=== PATIENT | female | born 1960 | race Hispanic/Latino ===

== ENCOUNTER 2019-03-23 23:34 | Emergency (ER) | payer OTHER ==
--- NOTE | 2019-03-23 23:59 | ER ---
Nurse's Notes [facility] Name: Lisa Rodríguez Age: 58 yrs Sex: Female : 1960 Arrival Date: 03/23/2019 Time: 23:37 Bed 26 Private MD: Diagnosis: Foreign body in right ear Presentation: 03/23 23:54 Presenting complaint: Patient states: Part of hearing aid stuck in right ear. tl2 Transition of care: patient was not received from another setting of care. Onset of symptoms was March 23, 2019. Risk Assessment: Do you want to hurt yourself or someone else? Patient reports no desire to harm self or others. Initial Sepsis Screen: Does the patient meet any 2 criteria? No. Patient's initial sepsis screen is negative. Does the patient have a suspected source of infection? No. Patient's initial sepsis screen is negative. Care prior to arrival: None. 23:54 Method Of Arrival: Ambulatory tl2 23:54 Acuity: LINSEY 4 tl2 Historical: - Allergies: 23:55 No Known Allergies; tl2 - Home Meds: 23:55 Enalapril Oral [Active]; Celebrex Oral [Active]; tl2 - PMHx: 23:55 Hypertension; left kidney people; tl2 - PSHx: 23:55 None; tl2 - Immunization history:: Adult Immunizations up to date. - Social history:: Smoking status: Patient/guardian denies using tobacco. - Ebola Screening: : No symptoms or risks identified at this time. Screenin:56 Abuse screen: Denies threats or abuse. Nutritional screening: No deficits noted. tl2 Tuberculosis screening: No symptoms or risk factors identified. Fall Risk None identified. Assessment: 23:50 General: Appears in no apparent distress. comfortable, Behavior is calm, cooperative, ca1 appropriate for age. Pain: Denies pain. Neuro: Level of Consciousness is awake, alert, obeys commands, Oriented to person, place, time, situation. Cardiovascular: Heart tones S1 S2 present Capillary refill < 3 seconds Patient's skin is warm and dry. Respiratory: Airway is patent Respiratory effort is even, unlabored, Respiratory pattern is regular, symmetrical, Breath sounds are clear bilaterally. GI: Abdomen is flat, non-distended, Bowel sounds present X 4 quads. Abd is soft and non tender X 4 quads. : No deficits noted. No signs and/or symptoms were reported regarding the genitourinary system. EENT: Ear canal w/ foreign body noted from right ear. 23:50 Derm: Skin is intact, is healthy with good turgor, Skin is pink, warm \T\ dry. ca1 Musculoskeletal: Circulation, motion, and sensation intact. Capillary refill < 3 seconds, Range of motion: intact in all extremities. Vital Signs: 23:55 BP 172 / 88; Pulse 62; Resp 18; Temp 98.9(O); Pulse Ox 98% on R/A; Weight 83.01 kg; tl2 Height 5 ft. 5 in. (165.10 cm); Pain 09/17; 03/24 00:08 BP 152 / 76; Pulse 58; Resp 16 S; Pulse Ox 100% on R/A; ca1 03/23 23:55 Body Mass Index 30.45 (83.01 kg, 165.10 cm) tl2 ED Course: 03/23 23:37 Patient arrived in ED. am2 23:45 Mateo Gamez, YOBANI is Primary Nurse. mg2 23:48 Ken Norman NP is PHCP. pm1 23:48 Vernon Gil MD is Attending Physician. pm1 23:50 No provider procedures requiring assistance completed. Patient did not have IV access ca1 during this emergency room visit. 23:54 Triage completed. tl2 23:55 Arm band placed on right wrist. tl2 23:56 Patient has correct armband on for positive identification. Bed in low position. Call tl2 light in reach. Side rails up X 1. Adult w/ patient. Administered Medications: No medications were administered Outcome: 23:58 Discharge ordered by . pm1 03/24 00:11 Discharged to home ambulatory, with significant other. ca1 00:11 Condition: stable ca1 00:11 Discharge instructions given to patient, Instructed on discharge instructions, follow up and referral plans. Demonstrated understanding of instructions, follow-up care. 00:11 Patient left the ED. ca1 Signatures: Ken Norman NP DEMAND GENERATION MANAGER pm1 Lenka White RN RN tl2 Cara Bellamy am2 Mateo Gamez RN RN mg2 Taina Saldaña RN RN ca1
--- NOTE | 2019-03-23 23:59 | EDPHYS ---
Physician Documentation [facility] Name: Lisa Rodríguez Age: 58 yrs Sex: Female : 1960 Arrival Date: 03/23/2019 Time: 23:37 Bed 26 Private MD: ED Physician Vernon Gil HPI: 03/23 23:54 This 58 yrs old Female presents to ER via Unassigned with complaints of pm1 Foreign Body In Ear. 23:54 The patient presents with a foreign body sensation, piece of her hearing aid. The pm1 complaints affect the right ear. Onset: The symptoms/episode began/occurred today. Modifying factors: The symptoms are alleviated by nothing, the symptoms are aggravated by nothing. Associated signs and symptoms: The patient has no apparent associated signs or symptoms. Severity of symptoms: Pain is currently a 0 / 10. Part of patient's hearing aid is left inside the right ear canal. Historical: - Allergies: 23:55 No Known Allergies; tl2 - Home Meds: 23:55 Enalapril Oral [Active]; Celebrex Oral [Active]; tl2 - PMHx: 23:55 Hypertension; left kidney people; tl2 - PSHx: 23:55 None; tl2 - Immunization history:: Adult Immunizations up to date. - Social history:: Smoking status: Patient/guardian denies using tobacco. - Ebola Screening: : No symptoms or risks identified at this time. ROS: 23:54 Constitutional: Negative for fever, chills, and weight loss. pm1 23:54 Neck: Negative for injury, pain, and swelling, Cardiovascular: Negative for chest pain, palpitations, and edema, Respiratory: Negative for shortness of breath, cough, wheezing, and pleuritic chest pain, Abdomen/GI: Negative for abdominal pain, nausea, vomiting, diarrhea, and constipation, Back: Negative for injury and pain, MS/Extremity: Negative for injury and deformity, Skin: Negative for injury, rash, and discoloration, Neuro: Negative for headache, weakness, numbness, tingling, and seizure. 23:54 ENT: Positive for foreign body sensation, Negative for ear pain. Exam: 23:54 Constitutional: This is a well developed, well nourished patient who is awake, alert, pm1 and in no acute distress. Head/Face: Normocephalic, atraumatic. Eyes: Pupils equal round and reactive to light, extra-ocular motions intact. Lids and lashes normal. Conjunctiva and sclera are non-icteric and not injected. Cornea within normal limits. Periorbital areas with no swelling, redness, or edema. 23:54 Neck: Trachea midline, no thyromegaly or masses palpated, and no cervical lymphadenopathy. Supple, full range of motion without nuchal rigidity, or vertebral point tenderness. No Meningismus. Chest/axilla: Normal chest wall appearance and motion. Nontender with no deformity. No lesions are appreciated. Cardiovascular: Regular rate and rhythm with a normal S1 and S2. No gallops, murmurs, or rubs. Normal PMI, no JVD. No pulse deficits. Respiratory: Lungs have equal breath sounds bilaterally, clear to auscultation and percussion. No rales, rhonchi or wheezes noted. No increased work of breathing, no retractions or nasal flaring. Back: No spinal tenderness. No costovertebral tenderness. Full range of motion. Skin: Warm, dry with normal turgor. Normal color with no rashes, no lesions, and no evidence of cellulitis. MS/ Extremity: Pulses equal, no cyanosis. Neurovascular intact. Full, normal range of motion. 23:54 ENT: External ear(s): are unremarkable, Ear canal(s): foreign body, a piece of plastic, in the right external ear canal, Examination of the other ear shows no obvious abnormality, Nose: is normal, Mouth: is normal. 23:54 Neuro: Orientation: is normal, Motor: is normal, moves all fours. Vital Signs: 23:55 BP 172 / 88; Pulse 62; Resp 18; Temp 98.9(O); Pulse Ox 98% on R/A; Weight 83.01 kg; tl2 Height 5 ft. 5 in. (165.10 cm); Pain 09/17; 03/24 00:08 BP 152 / 76; Pulse 58; Resp 16 S; Pulse Ox 100% on R/A; ca1 03/23 23:55 Body Mass Index 30.45 (83.01 kg, 165.10 cm) tl2 Procedures: 03/23 23:54 Foreign Body Removal: Rubber piece of her hearing aid, from the right ear canal, by pm1 using alligator clamps, The patient tolerated the removal well, right tympanic membrane intact . MDM: 23:48 Patient medically screened. pm1 23:54 Data reviewed: vital signs. Data interpreted: Pulse oximetry: on room air is 98 %. pm1 Interpretation: normal. Counseling: I had a detailed discussion with the patient and/or guardian regarding: the historical points, exam findings, and any diagnostic results supporting the discharge/admit diagnosis, to return to the emergency department if symptoms worsen or persist or if there are any questions or concerns that arise at home. Administered Medications: No medications were administered Disposition: 03/24 01:18 Co-signature as Attending Physician, Vernon Gil MD. mina Disposition: 03/23/19 23:58 Discharged to Home. Impression: Foreign body in right ear. - Condition is Stable. - Discharge Instructions: Ear Foreign Body. - Medication Reconciliation Form, Thank You Letter, Antibiotic Education, Prescription Opioid Use form. - Follow up: Emergency Department; When: As needed; Reason: Worsening of condition. Follow up: Private Physician; When: As needed; Reason: Recheck today's complaints, Continuance of care, Re-evaluation by your physician. - Problem is new. - Symptoms are resolved. Signatures: Vernon Gil MD MD pkl Ken Norman, DIPIKA OPTOMETRIST/PRACTICE OWNER pm1 Lenka White RN RN tl2 Taina Saldaña RN RN ca1 Corrections: (The following items were deleted from the chart) 00:11 03/23 23:58 03/23/2019 23:58 Discharged to Home. Impression: Foreign body in right ear. ca1 Condition is Stable. Forms are Medication Reconciliation Form, Thank You Letter, Antibiotic Education, Prescription Opioid Use. Follow up: Emergency Department; When: As needed; Reason: Worsening of condition. Follow up: Private Physician; When: As needed; Reason: Recheck today's complaints, Continuance of care, Re-evaluation by your physician. Problem is new. Symptoms are resolved. pm1
== END 2019-03-24 00:11 | disposition home or self-care (01) ==
LOC: ER 23:34
DX: T16.1XXA Foreign body in right ear, initial encounter (principal); I10 Essential (primary) hypertension
CPT/HCPCS: 99281